=== PATIENT | male | born 1995 | race Caucasian/White ===

== ENCOUNTER 2016-10-21 08:49 | Emergency (ER) | payer BC, OTHER ==
--- NOTE | 2016-10-21 10:31 | RAD ---
Indication: Unable to bear weight on LEFT ankle following rolling injury. Comparison: No relevant prior exams available on the [facility] P[facility] for comparison. Technique: AP, mortise, and lateral views LEFT ankle. Report: Normal articular alignment. Tiny ossicle inferior to the tip of the lateral malleolus is most suspicious for an accessory ossicle or sequela of remote injury based on rounded in morphology. No definitive acute or subacute fracture or osteochondral lesion evident. Suggestion of small talocrural joint effusion. Mild soft tissue swelling about the ankle without focality. IMPRESSION: Mild nonfocal soft tissue swelling and suggestion of small talocrural joint effusion without articular malalignment definitive acute or fracture.
[2016-10-21] MEDS ORDERED: Ibuprofen TAB* 600 MG PO ONE (10:59)
[2016-10-21 11:08] VITALS: BP 113/54
--- NOTE | 2016-10-21 14:51 | ED ---
Lower Extremity - HPI Summary HPI Summary: Patient presents with CC of left ankle pain after twisting it this morning and inverting it while running. Denies other complaints. Denies radiation of pain. Pain is discretely located over the left lateral ankle without deformity or ecchymosis. NV intact and pulses +2 bilaterally. No previous DVT or ankle injury. He is ambulatory but with mild pain. Arrives on crutches. - History of Current Complaint Chief Complaint: EDExtremityLower Stated Complaint: LT ANKLE/FOOT INJURY Time Seen by Provider: 10/21/16 08:57 Hx Obtained From: Patient Mechanism Of Injury: Twisted Onset of Pain: Immediate Onset/Duration: Minutes Severity Initially: Mild Severity Currently: Mild Pain Intensity: 2 Pain Scale Used: 0-10 Numeric Timing: Constant Location: Is Discrete @ - left lateral Character Of Pain: Aching Aggravating Factor(s): Standing, Ambulation Alleviating Factor(s): Rest Able to Bear Weight: Yes - Risk Factors Gout Risk Factors: Male DVT Risk Factors: Negative Septic Arthritis Risk Factor: Negative - Allergies/Home Medications Allergies/Adverse Reactions: Allergies Allergy/AdvReac Type Severity Reaction Status Date / Time No Known Allergies Allergy Verified 10/21/16 08:54 Home Medications: Home Medications NK [No Home Medications Reported] 10/21/16 [History Confirmed 10/21/16] PMH/Surg Hx/FS Hx/Imm Hx Previously Healthy: Yes - Immunization History Hx Pertussis Vaccination: No Immunizations Up to Date: Unable to Obtain/Confirm Infectious Disease History: No Infectious Disease History: Denies: Traveled Outside the [place] in Last 30 Days - Social History Occupation: Employed Full-time Lives: With Family Alcohol Use: Rare Hx Substance Use: No Substance Use Type: Reports: None Hx Tobacco Use: No Smoking Status (MU): Never Smoked Tobacco Do You Chew or Dip Tobacco: No Review of Systems Constitutional: Negative Eyes: Negative Cardiovascular: Negative Respiratory: Negative Positive: no symptoms reported, see HPI Positive: Arthralgia, Myalgia Skin: Negative Neurological: Negative Psychological: Normal All Other Systems Reviewed And Are Negative: Yes Physical Exam - Summary Physical Exam Summary: Thorough physical exam was performed, focusing on ankle special tests. Pain on palpation over lateral aspect and superior aspect of ankle over ATFL and deltoid ligaments. No pain on palpation over medial side. Due to patient pain around injury, physical exam was limited. Unable to perform anterior drawer test or talar tilt test d/t pain. Zur[place] test negative. Limited ROM. Dorsiflexion, great toe extension and plantar flexion intact however limited. No pain on palpation over medial or lateral lower extremity. No pain with knee flexion. Pulses intact bilaterally. No temperature change or pallor noted bilaterally. Ecchymosis and swelling noted on lateral aspect. No lesion or disruption of skin is seen. Able to bear weight. Triage Information Reviewed: Yes Vital Signs On Initial Exam: Initial Vitals Temp Pulse Resp BP Pulse Ox 97.8 F 69 17 127/48 98 10/21/16 08:51 10/21/16 08:51 10/21/16 08:51 10/21/16 08:51 10/21/16 08:51 Vital Signs Reviewed: Yes Appearance: Positive: Well-Appearing, Well-Nourished Skin: Positive: Warm, Skin Color Reflects Adequate Perfusion Head/Face: Positive: Normal Head/Face Inspection Eyes: Positive: EOMI, TD, Conjunctiva Clear Neck: Positive: Supple, Nontender, No Lymphadenopathy Respiratory/Lung Sounds: Positive: Clear to Auscultation, Breath Sounds Present Cardiovascular: Positive: Normal, RRR, Pulses are Symmetrical in both Upper and Lower Extremities Musculoskeletal: Positive: Pain @ - left ankle Neurological: Positive: Normal, Sensory/Motor Intact Diagnostics - Vital Signs Vital Signs Temp Pulse Resp BP Pulse Ox 10/21/16 10:45 62 97 10/21/16 10:30 46 113/54 98 10/21/16 10:15 55 98 10/21/16 10:00 53 112/65 98 10/21/16 09:45 58 97 10/21/16 09:30 57 115/63 97 10/21/16 09:29 98.3 F 56 18 115/63 98 10/21/16 09:15 56 96 10/21/16 09:10 59 98 10/21/16 09:07 128/62 10/21/16 08:51 97.8 F 69 17 127/48 98 - Laboratory Lab Statement: Any lab studies that have been ordered have been reviewed, and results considered in the medical decision making process. Lower Extremity Course/Dx - Course Course Of Treatment: Based on [place] [facility] Rules, patient sent to imaging. Xray negative for fracture or other acute findings. Soft tissue swelling noted over the lateral aspect of the ankle. Medial and lateral distal lower extremity without pain and x-rays show no widening of the ankle joint regarding low suspicion for Maisonneuve fx. Ankle was esmer wrapped to patient comfort to allow for immobilization for this period of time. Patient given orthopedic follow up in 5-7 days. Encouraged Ibuprofen 600mg three times daily with meals for pain. Return precautions given. Educated patient regarding ankle injuries and healing time and the possibility of further evaluation and imaging as orthopedist sees fit. - Diagnoses Differential Diagnosis/HQI/PQRI: Positive: Fracture (Closed), Sprain, Strain Provider Diagnoses: Grade 2 ankle sprain Discharge - Discharge Plan Condition: Stable Disposition: HOME Patient Education Materials: Foot Sprain (ED) Referrals: Non Staff,Doctor [Primary Care Provider] - Additional Instructions: Ibuprofen 600mg three times daily with meals for pain. If numbness, tingling, decreased sensation, increased pain, temperature changes or pallor noted in toes, come back to ER immediately. Protect the area. For your comfort level, do not bear weight, pull or push until you can injury is somewhat healed. This may involve the need for immobilization or crutches for a period of time. Rest the involved area, but not too long. You may need to be off your injury for some time to allow for healing, however excessive immobilization of joints can lead to stiffness and delay healing time. Early mobilization is encouraged if it is pain-free. Ice. Not directly on the skin. Cover with a towel. Apply ice no more than 30 minutes at a time Compression: You may use and keep an esmer wrap bandage over the injury to decrease swelling. Again, this should be limited and be taken off periodically to encourage early range of motion and mobilization. Elevate: Try to elevate the injured area above the heart whenever possible.
== END 2016-10-21 11:09 | disposition home or self-care (01) ==
LOC: ED 08:49
DX: S93.402A Sprain of unspecified ligament of left ankle, initial encounter (principal); X50.1XXA Overexertion from prolonged static or awkward postures, initial encounter; Y93.02 Activity, running; Y92.9 Unspecified place or not applicable
CPT/HCPCS: 99282; A9270-GY